=== PATIENT | female | born 1975 | race Caucasian/White ===

== ENCOUNTER → 2017-01-02 | Outpatient (CLI) | payer BC ==
[2017-01-02 16:18] LABS: BASO % 0.4 % (0.0-2.0); EOS # 0.1 (0.0-0.7); EOS % 1.3 % (0-4.0); GRAN # 6.6 (1.4-6.5); GRAN % 68.4 % (42.2-75.2); LYMPH # 2.2 (1.2-3.4); LYMPH % 22.4 % (20.0-51.0); MEAN CELL VOLUME 78 fl (80.0-100.0); MEAN CORPUSCULAR HGB CONC 32 g/dl (33.0-37.0); MEAN PLATELET VOLUME 9.3 fl (7.4-10.4); MONO # 0.7 (0.1-0.6); MONO % 7.2 % (1.7-9.3); PLATELET COUNT 360 K/mm3 (130-400); RED BLOOD COUNT 4.71 M/mm3 (4.10-5.30); REDCELL DISTRIBUTION WIDTH-CV 15.3 % (11.5-14.5); WHITE BLOOD COUNT 9.7 K/mm3 (4.8-10.8)
[2017-01-02 16:23] LABS: HEMATOCRIT 36.7 % (37.0-47.0); HEMOGLOBIN 11.9 g/dl (12.5-16.0); MEAN CORPUSCULAR HEMOGLOBIN 25 pg (27.0-31.0)
[2017-01-02 16:32] LABS: ALBUMIN 4.1 gm/dL (3.5-5.0); BILIRUBIN,TOTAL 0.9 mg/dL (0.0-1.0); CALCIUM 9.1 mg/dL (8.4-10.2); CREATININE, serum 0.9 mg/dL (0.52-1.25); POTASSIUM 3.9 mmol/L (3.4-5.0); TOTAL PROTEIN 7.5 gm/dL (6.4-8.2)
== END ==
LOC: COL.LAB 15:38
DX: R10.84 Generalized abdominal pain (principal)

== ENCOUNTER → 2017-01-05 | Outpatient (CLI) | payer BC | LOC: COL.RAD 13:45 | DX: N85.8 Other specified noninflammatory disorders of uterus (principal); K44.9 Diaphragmatic hernia without obstruction or gangrene | CPT/HCPCS: Q9967 ==

== ENCOUNTER → 2017-01-12 | Outpatient (CLI) | payer BC | LOC: COL.RAD 12:47 | DX: N92.6 Irregular menstruation, unspecified (principal); N83.202 Unspecified ovarian cyst, left side; Z90.710 Acquired absence of both cervix and uterus ==

== ENCOUNTER → 2017-02-16 | Outpatient (CLI) | payer BC | LOC: MC.RAD 14:25 | DX: Z12.31 Encounter for screening mammogram for malignant neoplasm of breast (principal) ==